=== PATIENT | female | born 1985 ===

== ENCOUNTER 2017-07-24 21:45 | Emergency (ER) | payer SELFPAY ==
[2017-07-24 21:52] VITALS: BP 119/85
[2017-07-24] MEDS ORDERED: AMOXICILLIN/CLAVULANATE POT 875/125 MG TAB PO ONE (22:08)
--- NOTE | 2017-07-24 22:08 | EDPHY ---
General - History Smoking Status: Never smoked Time Seen by Provider: 07/24/17 21:56 Narrative: CHIEF COMPLAINT: concerned for infection from scar removal HISTORY OF PRESENT ILLNESS: Patient presents with complaints of being concerned about infection from a recent scar removal plastic surgery procedure. She reports having breast augmentation done remotely, and having this reversed several years ago. She was unhappy with the appearance of the scar, thus she presented to a plastic surgeon to have the scar removed. This was done last week. She says she was feeling well until yesterday. She now complains of redness, warmth and possible infection of the scar removal site. Pain radiates up into the shoulder , chest and back. She has felt "light headed." Questionable fever. Questionable chills. No drainage. No other associated complaints or modifying factors. REVIEW OF SYSTEMS: Ten systems reviewed and are negative unless otherwise noted in the HPI PCP: None SPECIALISTS: Multiple specialist outside of the state PAST MEDICAL HISTORY: Uncomplicated PAST SURGICAL HISTORY: Breast augmentation with subsequent reversal SOCIAL HISTORY: Nonsmoker. Lives here [employer] student. FAMILY HISTORY: Noncontributory EXAMINATION General Appearance: Alert, no distress Head: normocephalic, atraumatic Eyes: Pupils equal and round, no conjunctival pallor or injection ENT, Mouth: Mucous membranes moist Neck: Normal inspection, supple, non-tender Respiratory: Lungs are clear to auscultation. No wheezing, rhonchi or crackles Cardiovascular: Regular rate and rhythm. 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 Left breast status post augmentation with suture lines intact surrounding the RUL and the lower breast margin. The incisions are clean, dry and intact without dehiscence. There is no erythema, warmth, fluctuance, his since or crepitus. Neurological: A&O, nonfocal, normal gait Skin: Warm and dry. Skin changes as above Extremities: Nontender, no pedal edema Psychiatric: Mood and affect normal DIFFERENTIAL DIAGNOSES: Including but not limited to cellulitis, dehiscence, incisional infection MDM: 9:55 p.m. Patient concern for infection of scar removal from breast augmentation reversal. Do not appreciate any signs of infection, abscess, or underlying abnormality. The rest exam is otherwise unremarkable with female mobility architect manager present. Patient is very concerned for the possibility of infection, thus I will place her on Augmentin prophylaxis. We discussed that this may be unnecessary but we will provide this for her. She has a follow-up appointment next week with another specialist that she would like to see. We discussed ED precautions for any actual warmth, fever or chest pain. She is comfortable with this plan and discharged home stable condition SUPERVISION: Patient was independently examined, but I discussed the case with my secondary supervising physician (Jarett An) Medical Decision Making: I did not see this patient while she was in the emergency department. However her care was discussed with the PA while the patient was in the department. I agree with treatment plan and management (Favian Castaneda) - Objective Vital Signs: Initial Vital Signs Temperature (C) 97.5 F 07/24/17 21:48 Heart Rate 74 07/24/17 21:48 Respiratory Rate 18 07/24/17 21:48 Blood Pressure 119/85 H 07/24/17 21:48 O2 Sat (%) 97 07/24/17 21:48 O2 Delivery Mode Room Air Allergies/Adverse Reactions: No Known Allergies Allergy (Unverified 07/24/17 21:47) Home Medications: Medication Instructions Recorded Amoxicillin/Clavulanate Pot 875 mg PO BID #19 tab 07/24/17 [Augmentin 875 MG TAB (*)] Medications Given: Discontinued Medications Amoxicillin/Clavulanate Potassium (Augmentin 875mg) 875 mg PO EDNOW ONE PRN Reason: Protocol Stop: 07/24/17 22:09 Last Admin: 07/24/17 22:11 Dose: 875 mg Departure - Departure Disposition: Home, Routine, Self-Care Clinical Impression: Incisional breast wound Condition: Good Instructions: Acute Wounds (ED) Additional Instructions: 1.Augmentin as prescribed to completion 2. Contact Dr. Silveira for outpatient wound care as needed 3. ED precautions as discussed Referrals: Nya Silveira MD [Medical Doctor] - As per Instructions Prescriptions: Amoxicillin/Clavulanate Pot [Augmentin 875 MG TAB (*)] 875 mg PO BID #19 tab
== END 2017-07-24 22:26 | disposition home or self-care (01) ==
DX: Z48.01 Encounter for change or removal of surgical wound dressing (principal)

== ENCOUNTER 2017-07-28 00:46 | Emergency (ER) | payer SELFPAY ==
[2017-07-28] MEDS ORDERED: HYDROCODONE/APAP 5/325 TAB PO ONE (01:13)
--- NOTE | 2017-07-28 01:39 | EDPHY ---
H & P Stated Complaint: left breast stitches- painful Time Seen by Provider: 07/28/17 01:03 HPI/ROS: HPI The patient presents with left-sided breast pain at site of surgical scar for the last 4 days. This is her 3rd visit for care, she was seen at the urgent care 4 days ago, then in the emergency department 3 days ago and now today here. The pain has been constant, is sharp in nature, is non radiating, is not improved with ibuprofen at home. [place] [facility] on June 30 she had a surgical scar revision of some sort after breast augmentation reversal. She left to come to the [facility] and had suture removal performed in [place] on July 14. She is here in [place] for her studies. She feels as if the sutures are still intact or were not completely removed. She feels areas of firmness below her surgical scar which are tender. When she was here 3 days ago, she got a prescription for Augmentin because she was concerned about infection, however her exam suggested no signs of infection truly. REVIEW OF SYSTEMS Constitutional: No fever, no chills. Eyes: No discharge. ENT: No sore throat. Cardiovascular: No chest pain, no palpitations. Respiratory: No cough, no shortness of breath. Gastrointestinal: No abdominal pain, no vomiting. Genitourinary: No hematuria. Musculoskeletal: No back pain. Skin: No rashes. Neurological: No headache. PMHx: Healthy Soc Hx: University student PHYSICAL General Appearance: Alert, anxious appearing Eyes: Pupils equal and round no pallor or injection ENT, Mouth: Mucous membranes moist Breast: There is a U shaped scar on the border of the left areola which is tender to palpation, there is palpable sub cm areas of firmness Respiratory: There are no retractions, lungs are clear to auscultation Cardiovascular: Regular rate and rhythm Gastrointestinal: Abdomen is soft and non-tender, no masses, bowel sounds normal Neurological: A&O, moves all extremities Skin: Warm and dry, no rashes Musculoskeletal: Neck is supple non tender Extremities: symmetrical, full range of motion Psychiatric: Patient is oriented X 3, there is no agitation Source: Patient Exam Limitations: No limitations - Personal History LMP (Females 10-55): 1-7 Days Ago - Medical/Surgical History Hx Asthma: Yes Hx Chronic Respiratory Disease: No Hx Diabetes: No Hx Cardiac Disease: No Hx Renal Disease: No Hx Cirrhosis: No Hx Alcoholism: No Hx HIV/AIDS: No Hx Splenectomy or Spleen Trauma: No Other PMH: Breast Implant - With Removal - Social History Smoking Status: Never smoked Constitutional: Initial Vital Signs Temperature (C) 36.6 C 07/28/17 00:49 Heart Rate 75 07/28/17 00:49 Respiratory Rate 20 07/28/17 00:49 Blood Pressure 130/76 H 07/28/17 00:49 O2 Sat (%) 92 07/28/17 00:49 O2 Delivery Mode Room Air Allergies/Adverse Reactions: No Known Allergies Allergy (Unverified 07/24/17 21:47) Home Medications: Medication Instructions Recorded Amoxicillin/Clavulanate Pot 875 mg PO BID #19 tab 07/24/17 [Augmentin 875 MG TAB (*)] Medical Decision Making Procedures: Bedside left breast Ultrasound- performed and interpreted by me. Indication: Concern for foreign body, left breast pain Findings: No foreign body visualized, no fluid collection seen, no tissue edema Impression: No foreign body Differential Diagnosis: This is a 32-year-old female with history of left breast augmentation status post [place] surgical [place]. Sutures were nonabsorbable and were removed at a clinic in [place] on July 14. Since July 23, the patient has had severe left breast pain which started spontaneously and is sharp in the area of her surgical scar. She has felt areas of firmness and is quite convinced that there are sutures which were not removed. In the emergency department, patient was given [place] for her pain. She had taken ibuprofen prior to arrival. She was given an ice pack. Both of these interventions helped her pain upon reassessment. Bedside ultrasound was performed by myself and demonstrated no subcutaneous foreign body, no fluid collection. I suspect her pain is from scar tissue which is forming leading to inflammation. Her pain seems almost neuropathic in origin and a question if there could be some mild nerve injury. She has already been referred to Dr. Silveira for evaluation. I explained to her that is unlikely that any surgeon would perform a procedure to look for retained suture material at this time. I have encouraged her to use ice packs and ibuprofen for her pain. I will give her a short course of [place]. I have given her information for the plastic surgeon on-call per her request. Differential diagnosis includes retained foreign body, cellulitis, abscess, postoperative wound healing. - Data Points Medications Given: Discontinued Medications Hydrocodone Bitart/Acetaminophen ([place] 5/325) 2 tab PO EDNOW ONE Stop: 07/28/17 01:14 Last Admin: 07/28/17 01:15 Dose: 2 tab Departure - Departure Disposition: Home, Routine, Self-Care Clinical Impression: Incisional breast wound Condition: Good Instructions: Breast Care for the Non- Mother (ED) Additional Instructions: The cause of your pain could be related to scar tissue as your breast begins to heal. I suspect there is some inflammation causing your pain and there may be some nerve pain with this. I recommend you take ibuprofen 400 mg every 6 hr as needed for pain. If the pain is still severe after this, then you should take the pain medicine I have given you. You should use ice packs for 20 min at a time several times during the day. I have referred you to the plastic surgeon for a follow-up appointment if you would like. It does not appear that there any stitches under your skin. Referrals: Rebeca Shannon JR, MD [Medical Doctor] - As per Instructions
[2017-07-28] MEDS ORDERED: HYDROCOD/APAP 5/325 PREPACK#6 BTL TAKEHOME ONE (01:43)
[2017-07-28 01:46] VITALS: BP 109/63
== END 2017-07-28 02:28 | disposition home or self-care (01) ==
DX: N64.4 Mastodynia (principal); G89.18 Other acute postprocedural pain; J45.909 Unspecified asthma, uncomplicated

== ENCOUNTER → 2017-09-15 | Outpatient (CLI) | payer OTHER | LOC: CIMAGING 08:31 | PROVIDERS: ATTEND Midwife | DX: N92.6 Irregular menstruation, unspecified (principal); N85.8 Other specified noninflammatory disorders of uterus; R93.8 Abnormal findings on diagnostic imaging of other specified body structures | CPT/HCPCS: 76856-PO ==